=== PATIENT | female | born 1950 | race Caucasian/White ===

== ENCOUNTER 2018-12-16 06:02 | Inpatient (IN) | payer OTHER ==
[2018-12-10 18:16] VITALS: BMI 32.5
[~2018-12-16 06:02] MED LIST: CEFAZOLIN 2 GM in DEXTROSE 5%-WATER - 50 ML IVPB ONE; PANTOPRAZOLE 40 MG TABLET (FP) PO ONE; ROPIVICAINE 0.2%/MORPH PF/KETOROLAC - 51ML DISP.SYRINGE IA ONE; TRANEXAMIC ACID 1000 MG/10 ML VIAL IVPUSH ONE; oxyCODONE HCL 10 MG SUSTAINED ACTING TABLET PO ONE
[2018-12-16] MEDS: GABAPENTIN 300 MG CAPSULE (FP) PO ONE ×2 (06:45→16:23)
[2018-12-16] MEDS: CELECOXIB 200 MG CAPSULE PO ONE (06:45)
[2018-12-16] MEDS: PANTOPRAZOLE 40 MG TABLET (FP) PO SCH (06:45)
[2018-12-16] MEDS ORDERED: PROPOFOL 20 ML ONE ×2 (07:14)
[2018-12-16] MEDS ORDERED: MIDAZOLAM HCL 2 MG/2 ML SINGLE DOSE VIAL ONE ×2 (07:14)
[2018-12-16] MEDS ORDERED: ceFAZolin SODIUM 1 GM VIAL ONE ×2 (07:16→08:38)
[2018-12-16] MEDS ORDERED: VANCOMYCIN 1,000 MG VIAL (RESTRICTED TO ID ONLY) ONE (07:16)
[2018-12-16] MEDS ORDERED: BUPIVACAINE HCL/PF (5 MG/ML) 30 ML VIAL IJ ONE ×2 (07:24→08:07)
--- NOTE | 2018-12-16 07:37 | HP ---
Admitting History and Physical - Admission Chief Complaint: left hip osteoarthritis x years History of Present Illness: 68 year old female presents in regard to their left hip. Longstanding history of left hip osteoarthritis. Patient complains of pain, limited ROM, difficulty ambulating and difficulty completing ADLs. Patient has failed conservative treatment measures including PO medications, injections, exercise programs and activity modification. At this point, patient wishes to proceed with surgical intervention, a left total hip arthroplasty - MAKOplasty. History Source: Patient - Past Medical History Cardiovascular: Yes: HTN Endocrine: Yes: Hypothyroidism - Past Surgical History Additional Past Surgical History: See written history & physical. - Smoking History Smoking history: Never smoked - Alcohol/Substance Use Hx Alcohol Use: No Home Medications - Allergies Allergies/Adverse Reactions: Allergies Allergy/AdvReac Type Severity Reaction Status Date / Time iodine Allergy Severe Verified 12/10/18 17:55 - Home Medications Home Medications: Ambulatory Orders Cholecalciferol (Vitamin D3) [Vitamin D3] 1,000 unit PO DAILY 12/10/18 Diclofenac Sodium [Diclofenac Sodium ER] 100 mg PO DAILY 12/10/18 Hydrochlorothiazide [Hctz -] 12.5 mg PO DAILY 12/10/18 Levothyroxine [Synthroid -] 100 mcg PO DAILY 12/10/18 Multivitamins [Tab-A-Vit -] 1 tab PO DAILY 12/10/18 Nebivolol [Bystolic -] 5 mg PO DAILY 12/10/18 Review of Systems - Review of Systems Musculoskeletal: reports: Decreased ROM (left hip), Joint Pain (left hip) Physical Examination Vital Signs: Vital Signs Temperature 98.2 F 12/16/18 07:06 Pulse Rate 68 12/16/18 07:06 Respiratory Rate 16 12/16/18 07:06 Blood Pressure 143/77 12/16/18 07:06 O2 Sat by Pulse Oximetry (%) Constitutional: Yes: Well Nourished, No Distress Eyes: Yes: Conjunctiva Clear HENT: Yes: Atraumatic Neck: Yes: Supple Cardiovascular: Yes: Regular Rate and Rhythm Respiratory: Yes: Regular Gastrointestinal: Yes: Soft ...Rectal Exam: Yes: Deferred Musculoskeletal: Yes: Joint Stiffness (left hip) Assessment/Plan 68 year old female presents in regard to their left hip. Longstanding history of left hip osteoarthritis. Patient complains of pain, limited ROM, difficulty ambulating and difficulty completing ADLs. Patient has failed conservative treatment measures including PO medications, injections, exercise programs and activity modification. At this point, patient wishes to proceed with surgical intervention, a left total hip arthroplasty - MAKOplasty. Pros, cons, risks benefits and alternatives of a left total hip arthroplasty, MAKOplasty were discussed with the patient at length. Patient confirms their understanding and consents to proceed with a left total hip arthroplasty, MAKOplasty.
[2018-12-16] MEDS ORDERED: PHENYLEPHRINE HCL 10 MG/1 ML SINGLE DOSE VIAL ONE (08:38)
[2018-12-16] MEDS ORDERED: VANCOMYCIN 1,000 MG VIAL (RESTRICTED TO ID ONLY) IVPB ONE (10:28)
[2018-12-16] MEDS ORDERED: TRANEXAMIC ACID 1000 MG/10 ML VIAL IVPUSH ONE (10:29)
[2018-12-16] MEDS ORDERED: ROPIVICAINE 0.2%/MORPH PF/KETOROLAC - 51ML DISP.SYRINGE IA ONE (10:40)
--- NOTE | 2018-12-16 11:52 | OP ---
Operative Note - Note: Operative Date: 12/16/18 Pre-Operative Diagnosis: left hip OA Operation: left JULIO CESAR JAIDEN Post-Operative Diagnosis: Same as Pre-op Surgeon: Perfecto Chisholm Dental Patient Coordinator: Em Jorgensen Anesthesia: Spinal Estimated Blood Loss (mls): 200
[2018-12-16] MEDS ORDERED: ACETAMINOPHEN 1000 MG/100 ML VIAL (NON FORMULARY) IVPB ONE (11:54)
[2018-12-16] MEDS ORDERED: MAG HYDROX/AL HYDROX/SIMETH 30 ML UNIT-DOSE CUP PO PRN (11:56)
[2018-12-16] MEDS ORDERED: MAGNESIUM HYDROX 2400MG/30ML ORAL SUSPENSION 30 ML CUP PO PRN (11:56)
[2018-12-16] MEDS ORDERED: LACTATED RINGERS SOLUTION 1,000 ML IV SCH (12:00)
[2018-12-16] MEDS: traMADol HCL 50 MG TABLET PO SCH ×2 (12:20→18:14)
[2018-12-16] MEDS: KETOROLAC TROMETHAMINE 30 MG/1 ML VIAL IVPUSH SCH ×2 (12:20→18:56)
[2018-12-16] MEDS ORDERED: PROMETHAZINE HCL 25 MG/1 ML VIAL ONE (13:07)
[2018-12-16] MEDS ORDERED: oxyCODONE HCL 5 MG TABLET PO PRN ×2 (13:08)
[2018-12-16] MEDS ORDERED: ONDANSETRON 4 MG/2 ML VIAL IVPUSH PRN (13:08)
[2018-12-16] MEDS ORDERED: PROMETHAZINE HCL 25 MG/1 ML VIAL IVPUSH PRN (13:08)
[2018-12-16] MEDS: ONDANSETRON 4 MG/2 ML VIAL IVPUSH PRN (13:10)
[2018-12-16] MEDS ORDERED: DEXAMETHASONE SOD PHOSPHATE 4 MG/1 ML VIAL IVPUSH ONE (13:12)
[2018-12-16] MEDS: CEFAZOLIN 2 GM/D5W 2 GM/50 ML ML IVPB SCH (18:17)
[2018-12-16] MEDS ORDERED: DEXAMETHASONE SOD PHOSPHATE 10 MG/1 ML VIAL IVPB ONE (20:00)
[2018-12-16] MEDS: SENNOSIDES/DOCUSATE COMBO (SENNA PLUS) TABLET (UD) PO SCH (21:30)
[2018-12-16] MEDS: GABAPENTIN 300 MG CAPSULE (FP) PO SCH (21:30)
[2018-12-16] MEDS: oxyCODONE HCL 10 MG SUSTAINED ACTING TABLET PO SCH (21:30)
[2018-12-16] MEDS: CELECOXIB 200 MG CAPSULE PO SCH (21:30)
[2018-12-16] MEDS: ASCORBIC ACID 500 MG TABLET (FP) PO SCH (21:31)
[2018-12-17] MEDS: traMADol HCL 50 MG TABLET PO SCH ×4 (00:18→17:31)
[2018-12-17] MEDS: KETOROLAC TROMETHAMINE 30 MG/1 ML VIAL IVPUSH SCH ×2 (00:19→05:58)
[2018-12-17] MEDS: CEFAZOLIN 2 GM/D5W 2 GM/50 ML ML IVPB SCH (01:12)
[2018-12-17] MEDS: ONDANSETRON 4 MG/2 ML VIAL IVPUSH PRN (06:03)
[2018-12-17] MEDS: LEVOTHYROXINE NA 100 MCG TABLET (FP) PO SCH (06:03)
--- NOTE | 2018-12-17 06:18 | SPEC ---
DATE OF OPERATION: 12/16/2018 PREOPERATIVE DIAGNOSIS: Left hip osteoarthritis. POSTOPERATIVE DIAGNOSIS: Left hip osteoarthritis. PROCEDURE: Left total hip replacement with MAKOplasty robotic navigation. SURGEON: Jaison Brannon MD PRODUCTION OPERATIONS ENGINEER: JENNIFER Curry. ANESTHESIA: Spinal plus sedation. ESTIMATED BLOOD LOSS: 200 mL. COMPLICATIONS: None. DISPOSITION: The patient was transferred to the PACU in stable condition. IMPLANTS USED: Valentine Accolade II size 4 femoral component, Valentine Trident II 52-mm acetabular component with 25 and 30 mm acetabular screws, MDM bipolar head ball and liner with inner ceramic 28 + 4 mm offset head ball. INDICATIONS: This is a 68-year-old female who presented to the office complaining of severe left hip pain. She was seen and examined by Dr. Brannon, diagnosed with severe left hip osteoarthritis. The patient was initially treated conservatively with non-operative treatments, but continued to have severe pain and ambulatory dysfunction. She was therefore indicated for a left total hip replacement. The risks, benefits, and alternatives to the procedure were explained to the patient in great detail, and she elected to proceed with the surgery. DESCRIPTION OF PROCEDURE: On the day of surgery, the patient was taken to the operating room and placed on the OR table. Spinal anesthesia was administered by the anesthesiologist. The patient was then positioned in the lateral decubitus position on the table and all bony prominences were padded. An axillary roll was placed. The operative hip was then prepped and draped in the usual sterile fashion and intravenous antibiotics were given for infection prophylaxis. A surgical time-out was then performed with the team, and the patients identity, procedure, side, availability of implants, and the administration of antibiotics were confirmed. An approximately 15-cm longitudinal incision was made through the skin centered on the greater trochanter of the hip. This dissection was carried down through the subcutaneous tissues to the deep fascia. This fascia was then incised and a Cobra was placed around the inferior femoral neck. Electrocautery was used to reflect the anterior 40% of the gluteus medius and minimus starting at the musculotendinous junction and leaving a cuff for closure. This was reflected to reveal the capsule of the hip joint. An anterior capsulectomy was performed and the femoral head and neck were visualized. Grade 4 changes were noted diffusely throughout the joint. At this point, three small stab incisions were made superior to the main incision along the iliac crest. Three self-drilling Steinmann pins were then placed and the [employer] pelvic array was attached. Reference points on the limb were then entered into the robotic device and the limb length deficiency, offset, and femoral neck resection level were then calculated by the software. The hip was then dislocated with traction and external rotation. An oscillating saw was used to make the femoral neck cut at the level previously templated, and the femoral head was removed. Attention was then turned to the acetabulum. Retractors were then placed around the acetabulum and the labrum was removed. An acetabular checkpoint pin and the [employer] software were used to register the contours of the acetabulum. The acetabulum was then reamed in a single stage to the preoperatively templated size using the [employer] robotic arm. The appropriately sized cup was then impacted and had solid fixation as well as the preset inclination and version of 40 and 20 degrees, respectively. A polyethylene liner was then placed in the cup. Attention was then turned back to the femur, which was externally rotated for improved visualization. A femoral neck elevator was used to present the femoral neck cut, a box osteotome was used to enter the femoral canal, and a canal finder was used to go down the femoral shaft. The Bin broaches were used sequentially until the optimal scratch fit was achieved. This correlated with the preoperatively templated size. From here, several different offset head and neck configurations were tested until excellent stability and length were obtained. These measurements were quantified using the [employer] software. All trial components were then removed, the femur was copiously irrigated, and the final components were placed. Leg length and stability were checked again and found to be excellent. Irrigation was performed again. Wound closure was started by repairing the abductor muscles with a no. 2 FiberWire stitch in a Krackow configuration passed through bone tunnels in the greater trochanter and tied over a bony bridge. This repair was then reinforced with a 0 V-Loc 180 barbed suture. Next, no. 1 Polysorb and 0 V-Loc 180 were used to close the fascia. The deep subcutaneous tissue was closed with no. 1 Polysorb sutures, and 2-0 Polysorb was used for the superficial subcutaneous tissue. The skin was closed using both 3-0 V-Loc 90 suture in a running subcuticular fashion and SwiftSet skin adhesive. The Bin array and pins were removed from the iliac crest and the stab incision sites were irrigated and closed with 4-0 Polysorb sutures and SwiftSet skin adhesive. Once this was completed, a sterile dressing was applied. The patient was then awakened and taken to the PACU in stable condition. JAISON BRANNON M.D. [id number]
[2018-12-17 08:24] LABS: CALCIUM 8.5 mg/dl (8.5-10); CREATININE 0.6 mg/dl (0.55-1.3); POTASSIUM 4.3 mmol/L (3.5-5.1)
[2018-12-17 08:27] LABS: HEMATOCRIT 30.4 % (32.4-45.2); HEMOGLOBIN 9.6 GM/dl (10.7-15.3); MCH 21.5 pg (25.7-33.7); MCHC 31.7 g/dl (32.0-36.0); MEAN PLT VOLUME 8.1 fl (7.5-11.1); PLATELET COUNT 337 K/MM3 (134-434); RBC 4.47 M/mm3 (3.60-5.2); RDW 13.7 % (11.6-15.6); WHITE BLOOD COUNT 14.5 K/mm3 (4.0-10.8)
[2018-12-17] MEDS: ASPIRIN 325 MG TABLET PO SCH (09:23)
[2018-12-17] MEDS: NEBIVOLOL 5 MG TABLET (FP) PO SCH (09:25)
[2018-12-17] MEDS: HYDROCHLOROTHIAZIDE 12.5 MG CAPSULE (FP) PO SCH (09:25)
[2018-12-17] MEDS: GABAPENTIN 300 MG CAPSULE (FP) PO SCH ×2 (09:25→21:34)
[2018-12-17] MEDS: MULTIVITAMINS (DAILY MVI) TABLET (FP) PO SCH (09:25)
[2018-12-17] MEDS: CELECOXIB 200 MG CAPSULE PO SCH ×2 (09:26→21:34)
[2018-12-17] MEDS: PANTOPRAZOLE 40 MG TABLET (FP) PO SCH (09:26)
[2018-12-17] MEDS: SENNOSIDES/DOCUSATE COMBO (SENNA PLUS) TABLET (UD) PO SCH ×2 (09:26→21:34)
[2018-12-17] MEDS: ASCORBIC ACID 500 MG TABLET (FP) PO SCH ×2 (09:26→21:34)
[2018-12-17] MEDS: oxyCODONE HCL 10 MG SUSTAINED ACTING TABLET PO SCH ×2 (09:27→21:34)
[2018-12-17] MEDS ORDERED: MULTIVITAMINS (DAILY MVI) TABLET (FP) PO SCH (10:00)
--- NOTE | 2018-12-17 14:29 | PN ---
Progress Note (short form) - Note Progress Note: ANESTHESIA POSTOP 68 YO FEMALE POD#1 S/P L JAIDEN, spinal and PNB Patient participating in PT. No complaints. Pain adequately controlled. VSS, Afebrile Encouraged IS and active participation in PT. No anesthetic complications.
--- NOTE | 2018-12-17 21:20 | PN ---
Progress Note (short form) - Note Progress Note: Pt seen and examined. Doing well. AVSS Selected Entries 12/17/18 14:29 Temperature 98.5 F Pulse Rate 72 Respiratory 18 Rate Blood Pressure 117/53 L O2 Sat by Pulse 95 Oximetry (%) Laboratory Tests 12/17/18 12/17/18 07:37 07:37 WBC 14.5 H Hgb 9.6 L Hct 30.4 L Plt Count 337 Sodium 135 L Potassium 4.3 Chloride 99 Carbon Dioxide 27 Anion Gap 9 BUN 14.0 Creatinine 0.6 Est GFR (CKD-EPI)AfAm 107.79 Est GFR (CKD-EPI)NonAf 93.00 Random Glucose 137 H Calcium 8.5 Gen: NAD LLE: c/d/i, NVID A/P POD #1 s/p L JAIDEN Doing well. PT/OOB - WBAT LLE D/C home in AM
--- NOTE | 2018-12-17 22:52 | DS ---
Physical Examination Vital Signs: Vital Signs Temperature 98.5 F 12/17/18 14:29 Pulse Rate 72 12/17/18 14:29 Respiratory Rate 18 12/17/18 14:29 Blood Pressure 117/53 L 12/17/18 14:29 O2 Sat by Pulse Oximetry (%) 95 12/17/18 14:29 Labs: CBC, BMP 12/17/18 07:37 12/17/18 07:37 Discharge Summary Reason For Visit: LEFT HIP OSTEOARTHRITIS Current Active Problems Osteoarthritis of left hip (Acute) Procedures: Principal: Left JULIO CESAR JAIDEN Hospital Course: Admitted for elective surgery. Procedure performed without complications. Pt received postoperative antibiotic prophylaxis and DVT ppx. Ambulated with physical therapy. Stable for discharge home with outpatient followup. Condition: Stable - Instructions Disposition: VNS/HOME HEALTH CARE - Home Medications Comprehensive Discharge Medication List: Ambulatory Orders Cholecalciferol (Vitamin D3) [Vitamin D3] 1,000 unit PO DAILY 12/10/18 Hydrochlorothiazide [Hctz -] 12.5 mg PO DAILY 12/10/18 Levothyroxine [Synthroid -] 100 mcg PO DAILY 12/10/18 Multivitamins [Multivit ([facility] Formulary)] 1 tab PO DAILY 12/10/18 Nebivolol [Bystolic -] 5 mg PO DAILY 12/10/18 Ascorbic Acid [Vitamin C -] 500 mg PO BID tablet 12/17/18 Aspirin [ASA -] 325 mg PO DAILY@0800 tablet 12/17/18 Celecoxib [CeleBREX -] 200 mg PO DAILY #30 capsule 12/17/18 Cephalexin Monohydrate [Keflex -] 500 mg PO TID #30 capsule 12/17/18 Multivitamins [Multivit ([facility] Formulary)] 1 tab PO DAILY tab 12/17/18 Oxycodone HCl/Acetaminophen [Percocet 5-325 mg Tablet] 1 - 2 tab PO Q4H PRN #60 tablet MDD 10 12/17/18 Pantoprazole Sodium [Protonix -] 40 mg PO DAILY #40 tablet.ec 12/17/18 Sennosides/Docusate Sodium [Pericolace -] 2 tablet PO BID tablet 12/17/18 traMADol HCL [Ultram -] 50 mg PO Q4H PRN #42 tablet MDD 6 12/17/18
[2018-12-18] MEDS: traMADol HCL 50 MG TABLET PO SCH ×3 (00:33→12:06)
[2018-12-18] MEDS: LEVOTHYROXINE NA 100 MCG TABLET (FP) PO SCH (06:40)
[2018-12-18] MEDS: ONDANSETRON 4 MG/2 ML VIAL IVPUSH PRN (06:41)
[2018-12-18] MEDS: ASPIRIN 325 MG TABLET PO SCH (08:28)
[2018-12-18 08:32] LABS: HEMATOCRIT 28.3 % (32.4-45.2); HEMOGLOBIN 8.8 GM/dl (10.7-15.3); MCHC 31.2 g/dl (32.0-36.0); MEAN CELL VOLUME 67.3 fl (80-96); MEAN PLT VOLUME 8.1 fl (7.5-11.1); PLATELET COUNT 336 K/MM3 (134-434); RBC 4.21 M/mm3 (3.60-5.2); RDW 13.8 % (11.6-15.6); WHITE BLOOD COUNT 11.8 K/mm3 (4.0-10.8)
[2018-12-18 10:23] VITALS: BP 114/46; PULSE 77; TEMP 97.7
[2018-12-18] MEDS: HYDROCHLOROTHIAZIDE 12.5 MG CAPSULE (FP) PO SCH (10:26)
[2018-12-18] MEDS: NEBIVOLOL 5 MG TABLET (FP) PO SCH (10:26)
[2018-12-18] MEDS: ASCORBIC ACID 500 MG TABLET (FP) PO SCH (10:32)
[2018-12-18] MEDS: MULTIVITAMINS (DAILY MVI) TABLET (FP) PO SCH (10:32)
[2018-12-18] MEDS: oxyCODONE HCL 10 MG SUSTAINED ACTING TABLET PO SCH (10:32)
[2018-12-18] MEDS: SENNOSIDES/DOCUSATE COMBO (SENNA PLUS) TABLET (UD) PO SCH (10:32)
[2018-12-18] MEDS: CELECOXIB 200 MG CAPSULE PO SCH (10:32)
[2018-12-18] MEDS: PANTOPRAZOLE 40 MG TABLET (FP) PO SCH (10:32)
[2018-12-18] MEDS: GABAPENTIN 300 MG CAPSULE (FP) PO SCH (10:32)
--- NOTE | 2018-12-18 14:52 | PATH ---
Surgical Pathology Report Patient Name: ZACH CABRERA Med. Rec. #: [id number] /Age/Gender: 1950 (Age: 68) / F Account: [id number] Location: [facility] MED-SURG Taken: 12/16/2018 Received: 12/16/2018 Reported: 12/18/2018 Physicians: Perfecto Chisholm M.D. Specimen(s) Received LEFT FEMORAL HEAD Clinical History Left hip osteoarthritis Final Diagnosis FEMORAL HEAD, LEFT, TOTAL HIP REPLACEMENT: DEGENERATIVE JOINT DISEASE. Electronically Signed Michelle Bhandari M.D. Gross Description Received in formalin, labeled "left femoral head," is a 5.0 x 4.5 x 4.2 cm. femoral head with a 1.0 cm in length portion of femoral neck attached. The margin of resection is smooth. There is a 5.3 cm greatest dimension area of eburnation present. The remaining articular surface is plunkett-yellow and diffusely nodular and granular. The underlying trabecular bone is yellow and hard. A practice representative section is submitted in one cassette, following decalcification. /12/17/2018 [facility]12/17/2018
== END 2018-12-18 13:05 | disposition home health service (06) | DRG 470 ==
LOC: FM/S 06:02 → MERGE 11:00 → FM/S 13:54
PROVIDERS: ADMIT Student in an Organized Health Care Education/Training Program; ATTEND Student in an Organized Health Care Education/Training Program
PROC: 8E0Y0CZ Robotic Assisted Procedure of Lower Extremity, Open Approach (ICD-10-PCS; 2018-12-16)
PROC: 0SRB0JA Replacement of Left Hip Joint with Synthetic Substitute, Uncemented, Open Approach (ICD-10-PCS; principal; 2018-12-16 08:56)
DX: M16.12 Unilateral primary osteoarthritis, left hip (principal); I10 Essential (primary) hypertension; E03.9 Hypothyroidism, unspecified
CPT/HCPCS: 36415; 73502-TC-LT-FY; 80048; 85027; 88304-TC; 88311-TC; 94760; 97116-GP; 97163-GP; J0131; J1100